=== PATIENT | female | born 1985 | race Hispanic/Latino ===

== ENCOUNTER 2018-01-18 09:07 | Outpatient (CLI) | payer OTHER ==
--- NOTE | 2018-01-18 15:22 | Mammography Report ---
BILATERAL DIGITAL SCREENING MAMMOGRAM WITH CAD:01/18/18 08:45:00 CLINICAL: Baseline screening. FINDINGS: The breasts are heterogeneously dense, which may obscure small masses in the right breast is more dense than the left. Bilateral nonspecific moderate skin thickening.Right asymmetries require additional imaging. No architectural distortion or suspicious calcifications. IMPRESSION: Right asymmetries requiring further workup. BI-RADS CATEGORY: 0 -- Needs Additional Imaging RECOMMENDATION: Recall for right ML and spot compression MLO and CC views and right breast ultrasound if needed. ACR BI-RADS MAMMOGRAPHIC CODES: 0 = Needs additional imaging evaluation; 1 = Negative; 2 = Benign; 3 = Probably benign; 4 = Suspicious; 5 = Malignant; 6 = Known biopsy-proven malignancy COMMENT: 1. Dense breast tissue, i.e., adenosis, fibrocystic changes, etc., may obscure an underlying neoplasm. 2. Approximately 10% of cancers are not detected with mammography. 3. A negative mammography report should not delay biopsy if a clinically suspicious mass is present.
== END 2018-01-18 09:08 | disposition home or self-care (01) ==
LOC: SPVWC 09:07
DX: Z12.31 Encounter for screening mammogram for malignant neoplasm of breast (principal)
CPT/HCPCS: 77067

== ENCOUNTER 2018-02-27 09:17 | Outpatient (CLI) | payer OTHER ==
--- NOTE | 2018-02-27 10:11 | Mammography Report ---
RIGHT DIGITAL DIAGNOSTIC MAMMOGRAM : 02/27/18 09:17:00 CLINICAL: Recalled for asymmetries. COMPARISON:01/18/18 baseline screening FINDINGS: Additional mammographic views were performed and are negative. IMPRESSION: Negative Mammogram. BI-RADS CATEGORY: 1 -- Negative RECOMMENDATION: Routine mammographic screening based on ACS guidelines. ACR BI-RADS MAMMOGRAPHIC CODES: 0 = Needs additional imaging evaluation; 1 = Negative; 2 = Benign; 3 = Probably benign; 4 = Suspicious; 5 = Malignant; 6 = Known biopsy-proven malignancy COMMENT: 1. Dense breast tissue, i.e., adenosis, fibrocystic changes, etc., may obscure an underlying neoplasm. 2. Approximately 10% of cancers are not detected with mammography. 3. A negative mammography report should not delay biopsy if a clinically suspicious mass is present. COMMENT: Patient follow-up letters are generated via our [employer] application.
== END 2018-02-27 09:18 | disposition home or self-care (01) ==
LOC: SPVWC 09:17
DX: N64.89 Other specified disorders of breast (principal); Z98.51 Tubal ligation status